=== PATIENT | female | born 1950 | race Caucasian/White ===

== ENCOUNTER 2016-06-12 10:28 | Emergency (ER) | payer OTHER ==
[2016-06-12 10:38] VITALS: TEMP 98.4
--- NOTE | 2016-06-12 10:41 | EDPHY ---
H & P Time Seen by Provider: 06/12/16 10:40 HPI/ROS: CHIEF COMPLAINT: Abdominal pain HISTORY OF PRESENT ILLNESS: This 65-year-old woman has had right lower quadrant abdominal pain intermittently over the past week. It sometimes radiates the back but is not associated with urinary symptoms vomiting or diarrhea. It is worse with a deep breath, and often with movement. Pain is moderate today and not going away so she went to her primary care physician Dr. Tyler Palmer who called me prior to the patient's arrival and sent her to the emergency department for further evaluation. Better when she lies down and is still. No known trauma or injury. REVIEW OF SYSTEMS: Eye: no change in vision ENT: no sore throat Cardiac: no chest pain or syncope Pulmonary: no cough or SOB Abdomen: HPI Musculoskeletal: no back pain Skin: no rash Neuro: no headache Constitutional: no fever : no urinary symptoms A comprehensive 10 point review of systems is otherwise negative aside from elements mentioned in the history of present illness. PAST MEDICAL HISTORY: Includes previous lumbar spine surgery. 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 General Appearance: Alert and conversant, cooperative. Eyes: No scleral icterus. ENT, Mouth: Normal mucous membranes. Respiratory: Normal respiratory effort, breath sounds equal, lungs are clear to auscultation. Cardiovascular: Regular rate and rhythm. Gastrointestinal: Mild right lower quadrant abdominal tenderness without rebound or guarding. Negative Zavaleta sign. No hernia appreciated. Neurological: Alert and oriented x3. Normally conversant. Face symmetric, normal movement and sensation in all extremities. Skin: Warm and dry, no rashes. No zoster or redness. Musculoskeletal: No peripheral edema and no joint swelling. Psychiatric: Not agitated. Emergency Department course/MDM: Patient declined pain medication. Differential broad and includes but is not limited to renal colic, appendiceal abscess, diverticulitis, vascular dissection or aneurysm, acute appendicitis. Plan for i-STAT and abdominal pelvis CT with IV contrast. Discussed and consented the patient. 1215: Results discussed with the patient. She does not have a rash of shingles. Possibility of spinal cord problem causing her pain discussed with the patient especially in light of her previous spinal fusion. Plan for MRI and 0.5 mg IV Dilaudid. 1420: Results discussed in detail with the patient including MRI. Her MRI abnormalities do not correlate with her symptoms and I think that they are not directly related. We discussed symptomatic treatment and follow-up and the fact that it definitive diagnosis is not reached but I do not think she has evidence right now that there is an emergent medical condition. I think the most reasonable thing at this time is discharge with treatment of her symptoms. Warned that she needs CT follow-up in 6-12 months for the left lower lung nodule to evaluated possibility of malignancy, and she will contact her primary care physician's office to arrange. Smoking Status: Former smoker Constitutional: Initial Vital Signs Temperature (C) 36.9 C 06/12/16 10:30 Heart Rate 87 06/12/16 10:30 Respiratory Rate 18 06/12/16 10:30 Blood Pressure 145/92 H 06/12/16 10:30 O2 Sat (%) 96 06/12/16 10:30 O2 Delivery Mode Room Air Allergies/Adverse Reactions: erythromycin base [Erythromycin Base] Allergy (Mild, Verified 06/12/16 10:38) STOMACH UPSET SEASONAL Allergy (Mild, Uncoded 06/12/16 10:38) NOSE CONGESTION, ITCHY EYES Home Medications: Medication Instructions Recorded Zolpidem Tartrate [Ambien 5MG (*)] 5 mg PO HS 06/12/16 Medical Decision Making - Diagnostics Imaging: Normal abdominal pelvic CT per Angely at 11:49 a.m. , reviewed by myself. Left lower lung nodule 5 mm require 6-12 months follow-up if nonsmoker. No reason for right lower quadrant abdominal pain. [facility] at 1400: L2-=3 spinal canal narrowing, left T7-8 disk herniation. MRI T and L spine. - Data Points Laboratory Results: Laboratory Results 06/12/16 10:55 06/12/16 10:55 06/12/16 06/12/16 10:55 10:40 WBC 4.82 10^3/uL (3.80-9.50) RBC 4.91 10^6/uL (4.18-5.33) Hgb 15.1 g/dL (12.6-16.3) POC Hgb 15.0 gm/dL (12.3-15.9) Hct 43.2 % (38.0-47.0) POC Hct 44 % (35.5-47.5) MCV 88.0 fL (81.5-99.8) MCH 30.8 pg (27.9-34.1) MCHC 35.0 g/dL (32.4-36.7) RDW 13.0 % (11.5-15.2) Plt Count 228 10^3/uL (150-400) MPV 10.0 fL (8.7-11.7) Neut % (Auto) 54.8 % (39.3-74.2) Lymph % (Auto) 30.3 % (15.0-45.0) [place] % (Auto) 10.4 % (4.5-13.0) Eos % (Auto) 3.3 % (0.6-7.6) Baso % (Auto) 1.0 % (0.3-1.7) Nucleat RBC Rel Count 0.0 % (0.0-0.2) Absolute Neuts (auto) 2.64 10^3/uL (1.70-6.50) Absolute Lymphs (auto) 1.46 10^3/uL (1.00-3.00) Absolute Monos (auto) 0.50 10^3/uL (0.30-0.80) Absolute Eos (auto) 0.16 10^3/uL (0.03-0.40) Absolute Basos (auto) 0.05 10^3/uL (0.02-0.10) Absolute Nucleated RBC 0.00 10^3/uL (0-0.01) Immature Gran % 0.2 % (0.0-1.1) Immature Gran # 0.01 10^3/uL (0.00-0.10) POC Sodium 143 mEq/L (134-144) Sodium 142 mEq/L (134-144) POC Potassium 3.8 mEq/L (3.3-5.0) Potassium 4.0 mEq/L (3.5-5.2) POC Chloride 107 mEq/L (96-108) Chloride 108 mEq/L (97-110) Carbon Dioxide 22 mEq/l (22-31) Anion Gap 12 mEq/L (8-16) POC BUN 22 mg/dL (7-23) BUN 20 mg/dL (7-23) Creatinine 0.7 mg/dL (0.6-1.0) POC Creatinine 0.6 mg/dL (0.6-1.2) Estimated GFR > 60 Glucose 93 mg/dL (70-100) POC Glucose 96 mg/dL (70-100) Calcium 9.3 mg/dL (8.5-10.4) Urine Color PALE YELLOW Urine Appearance CLEAR Urine pH 6.0 (5.0-7.5) Ur Specific [place] 1.011 (1.002-1.030) Urine Protein NEGATIVE (NEGATIVE) Urine Ketones NEGATIVE (NEGATIVE) Urine Blood NEGATIVE (NEGATIVE) Urine Nitrate NEGATIVE (NEGATIVE) Urine Bilirubin NEGATIVE (NEGATIVE) Urine Urobilinogen NEGATIVE EU (0.2-1.0) Ur Leukocyte Esterase NEGATIVE (NEGATIVE) Ur Culture Indicated? NOT INDICATED (NI) Urine Glucose NEGATIVE (NEGATIVE) Medications Given: Discontinued Medications Hydromorphone HCl (Dilaudid) 0.5 mg IVP EDNOW ONE Stop: 06/12/16 12:20 Last Admin: 06/12/16 12:34 Dose: 0.5 mg Sodium Chloride (Ns) 1,000 mls @ 0 mls/hr IV ONCE ONE PRN Reason: Wide Open Stop: 06/12/16 10:53 Last Admin: 06/12/16 11:02 Dose: 1,000 mls Ondansetron HCl (Zofran) 4 mg IVP EDNOW ONE Stop: 06/12/16 12:20 Last Admin: 06/12/16 12:35 Dose: 4 mg Point of Care Test Results: 06/12/16 10:55 POC Sodium 143 POC Potassium 3.8 POC Chloride 107 POC BUN 22 POC Creatinine 0.6 POC Glucose 96 Departure - Departure Disposition: Home, Routine, Self-Care Clinical Impression: Abdominal pain Condition: Good Instructions: Acute Abdominal Pain (ED) Additional Instructions: Please contact your primary physician's office as you need repeat CT scanning in 6-12 months to evaluate the left lower lung nodule seen on her CT today. Referrals: Maddy Crocker MD [Primary Care Provider] - As per Instructions
[2016-06-12] MEDS ORDERED: NS 1,000 ML IV ONE (10:52)
[2016-06-12 11:13] LABS: COLOR PALE YELLOW; LEUKOCYTE ESTERASE,URINE NEGATIVE (NEGATIVE); NITRITE,URINE NEGATIVE (NEGATIVE)
[2016-06-12 11:15] LABS: % IMMATURE GRANULYOCYTES 0.2 % (0.0-1.1); ABSOLUTE IMMATURE GRANULOCYTES 0.01 10^3/uL (0.00-0.10); ADD DIFF? NO; ADD MORPH? NO; ADD SCAN? NO; ATYPICAL LYMPHOCYTE FLAG 20 (0-99); FRAGMENT RBC FLAG 0 (0-99); HEMATOCRIT 43.2 % (38.0-47.0); HEMOGLOBIN 15.1 g/dL (12.6-16.3); LEFT SHIFT FLG 0 (0-99); LIPEMIA HEMOLYSIS FLAG 90 (0-99); MEAN CELL HEMOGLOBIN 30.8 pg (27.9-34.1); PLATELET CLUMPS FLAG 10 (0-99); PLATELET COUNT 228 10^3/uL (150-400); RED BLOOD CELL COUNT 4.91 10^6/uL (4.18-5.33)
[2016-06-12 11:30] LABS: ANION GAP 12 mEq/L (8-16); CALCIUM 9.3 mg/dL (8.5-10.4); CARBON DIOXIDE 22 mEq/l (22-31); CHLORIDE 108 mEq/L (97-110); CREATININE 0.7 mg/dL (0.6-1.0); GLOMERULAR FILTRATION RATE > 60; GLUCOSE 93 mg/dL (70-100); SODIUM 142 mEq/L (134-144)
--- NOTE | 2016-06-12 11:55 | CT ---
CT Abdomen and Pelvis With Contrast History: Right lower quadrant pain for 2 days. Comparison: CT pelvis of August 08, 2009. CT lumbar spine from September 18, 2009. Technique: Axial contrast-enhanced images were obtained through the abdomen and pelvis following the uneventful administration of 90 mL Isovue-300 intravenous contrast. Creatinine is 0.6. Dose reduction techniques were utilized. Findings: Abdomen: There is a 5-mm noncalcified left lower lobe nodule (series 4 image 7). Mild basilar scarrin g/atelectasis is present. Heart size is normal. A tiny hypodensity in the liver is too small to characterize, of doubtful clinical significance. The gallbladder, spleen, pancreas, and adrenals are normal. Several nonobstructing stones in the right ki dney measure up to 3 mm. A 2-mm nonobstructing stone is present in the left kidney. A 3-cm simple cys t is present in the superior left kidney. Additional circumscribed hypodensities in the kidneys are t oo small to characterize. Parapelvic cysts are present in the left kidney. The renal pelves are mildl y prominent without hydronephrosis. Diverticulosis is present without evidence of diverticulitis. The colon and small bowel are normal ca liber. Moderate stool is present in the colon. The appendix is normal. There is no free fluid or air. The aorta is normal caliber with mild atherosclerosis. The IVC, hepatic, portal, splenic, and superio r mesenteric veins are patent. No pathologically enlarged lymph nodes are identified. L3 through L5 fusion hardware is noted. There is a stable old mild compression fracture of L2. Multil evel degenerative change in the lumbar spine is stable to slightly increased. Pelvis: The bladder is normal. Uterine contour is normal. A small fat-containing left hernia is uncha nged. No pathologically enlarged lymph nodes are identified. No aggressive osseous lesions are identified. Impression: 1. Nonobstructing nephrolithiasis. 2. Constipation 3. 5-mm left lower lobe nodule. If the patient is a nonsmoker with no history of malignancy, unenhanc ed low dose chest CT is recommended for followup in 12 months. If the patient is a smoker or has a h istory of malignancy, followup CT is recommended in 6-12 months, then at 18-24 months from the initia l study if no change. 4. Colonic diverticulosis without evidence of diverticulitis. 5. Additional findings as above. Findings discussed with Dr. Antwan Delaney today at 1148 hours.
[2016-06-12] MEDS ORDERED: ONDANSETRON 4 MG/2 ML VIAL IVP ONE (12:19)
[2016-06-12] MEDS ORDERED: HYDROmorphONE/DILAUDID 1 MG/ML SYR IVP ONE (12:19)
--- NOTE | 2016-06-12 14:03 | MR ---
MRI Thoracic Spine Without Contrast History: Radicular right pelvic pain, history of spinal fusion. Comparison: MR thoracic spine of May 03, 2010. PA and lateral chest from March 02, 2015, thoraci c spine of August 23, 2013. CT abdomen and pelvis from June 12, 2016. Technique: Sagittal T1/T2/STIR and axial T1/T2-weighted MR series of the thoracic spine without contr ast. Findings: Alignment of the thoracic spine is normal. Minimal anterior reduction of T7 is unchanged. T here is stable mild concavity of the superior endplate of T8. Osseous marrow signal intensity is norm al. A 3-cm cyst is present in the left kidney with additional T2 hyperintense structures in the kidne ys, likely presenting cysts, incompletely characterize. Parapelvic cysts are suspected in the left ki dney. Minimal annular bulges are present from C7 through T4, without significant spinal canal narrowing or neural foraminal stenosis. T5-T6 and T6-T7 are unremarkable. T7-T8: Mild vertebral spondylosis and moderate facet hypertrophy with a moderate focal left paracentr al disk protrusion indenting the ventral surface of the spinal cord without compression, causing mild spinal canal narrowing with left mild neural foraminal stenosis. T8-T9: Decreased conspicuity of a small focal left paracentral disk protrusion, with mild facet hyper trophy, with minimal spinal canal narrowing and no significant neural foraminal stenosis. No significant spinal canal narrowing or neural foraminal stenosis from T9 through T12. Impression: 1. T7-T8: Moderate focal left paracentral disk protrusion indenting the ventral surface of the spinal cord causing mild spinal narrowing, with mild to moderate left neural foraminal stenosis, without co rd compression. 2. Additional findings as above. Findings discussed with Dr. Antwan Delaney today at 1403 hours.
[2016-06-12 14:07] VITALS: RESP 16
--- NOTE | 2016-06-12 14:08 | MR ---
MRI of the Lumbar Spine (Without Contrast) History: Right-sided radicular pelvic pain, previous fusion. Comparison: CT abdomen and pelvis from the same day, plain film lumbar spine of October 09, 2012, MR lumb ar spine from April 06, 2010. Technique: Sagittal and axial T1 and T2 , and sagittal STIR MR sequences of the lumbar spine witho ut contrast. Findings: Alignment of the lumbar spine is normal. The conus medullaris appears normal and ends at L1. Transpedicular fusion hardware is present on the right from L3 through L5 and on the left from L3 through L4, with intervertebral fusion material at L3-L4, similar to the comparison. Solid posterior osseous fusion is noted from L4 through S1. Visualization of the cervical spine in the region of stan dware is limited. Cysts are again noted in the kidneys. L1-L2: Mild vertebral spondylosis and facet and ligamentum flavum hypertrophy, with no significant sp inal canal narrowing or neural foraminal stenosis. L2-L3: Increased moderate vertebral spondylosis with a diffuse annular bulge with a small posterior a nnular tear, with moderate to severe facet hypertrophy, with severe (6 to 7 mm) spinal canal narrowin g, slightly increased since the comparison, with effacement of CSF adjacent to the nerve roots, with possible compression. L3-L4: Previous fusion with no significant spinal canal narrowing or appreciable neural foraminal jhonny nosis. L4-L5: Minimal vertebral spondylosis with a minimal annular bulge with no significant spinal canal na rrowing or neural foraminal stenosis. L5-S1: Mild vertebral spondylosis with no significant spinal canal narrowing or neural foraminal sten osis. Impression: 1. L2-L3: Increased severe spinal canal narrowing with effacement of CSF adjacent to the nerve roots, with possible compression. 2. Additional findings as above. 3. Please see above findings at specific disk levels. Findings discussed with Dr. Antwan Delaney today at 1403 hours.
[2016-06-12 14:49] VITALS: BP 127/86; PULSE 76; O2SAT 97
== END 2016-06-12 14:49 | disposition home or self-care (01) ==
DX: R10.31 Right lower quadrant pain (principal); Z87.891 Personal history of nicotine dependence
CPT/HCPCS: 82947-QW; 96374; J1170; J2405

== ENCOUNTER → 2016-07-12 | Outpatient (CLI) | payer OTHER ==
--- NOTE | 2016-07-12 13:34 | MA ---
Screening Digital Mammogram With iCAD Analysis Clinical Indications: Routine screening. Technique: Standard cephalocaudal and mediolateral oblique projections were obtained. This examinatio n was processed by the iCAD computer aided detection system. Comparison: August 2014, June 2013, June 2012, May 2011, May 2010, May 2009. Breast density: Type B; Scattered fibroglandular densities. Findings: CAD was reviewed. No masses, suspicious calcifications or other signs of malignancy are id entified. There has been no significant change in the appearance of either breast. Impression: Negative mammogram. BI-RADS 1. Recommendation: Routine mammographic screening in one year as long as physical examination [facility]. Negative mammography should not preclude additional workup of a clinically suspicious finding. The patient's information is entered into a reminder system with a target due date for her next mammo gram.
== END ==
LOC: FIMAGING 12:12
DX: Z12.31 Encounter for screening mammogram for malignant neoplasm of breast (principal)
CPT/HCPCS: G0202

== ENCOUNTER → 2017-07-17 | Outpatient (CLI) | payer OTHER, MEDICARE | LOC: CIMAGING 09:23 | PROVIDERS: ATTEND Family Medicine | DX: R91.1 Solitary pulmonary nodule (principal) | CPT/HCPCS: 71250-PO ==

== ENCOUNTER → 2018-07-07 | Outpatient (CLI) | payer OTHER, MEDICARE | LOC: GIMAGING 14:39 | PROVIDERS: ATTEND Family Medicine | DX: M79.604 Pain in right leg (principal) | CPT/HCPCS: 73551-PO ==

== ENCOUNTER → 2018-09-24 | Outpatient (CLI) | payer OTHER, MEDICARE | LOC: FIMAGING 09:09 | PROVIDERS: ATTEND Family Medicine | DX: Z12.31 Encounter for screening mammogram for malignant neoplasm of breast (principal) ==